=== PATIENT | female | born 1960 | race Caucasian/White ===

== ENCOUNTER 2017-04-21 07:45 | Emergency (ER) | payer OTHER ==
[2017-04-21] MEDS ORDERED: Ondansetron INJ* 2 MG/ML VIAL IV ONE (08:01)
--- NOTE | 2017-04-21 08:51 | RAD ---
INDICATION: Abdominal pain. COMPARISON: Comparison is made with a prior abdominal series from March 16, 2016. TECHNIQUE: Supine and upright views of the abdomen were obtained. FINDINGS: The small bowel and colon appear nondistended. No free intraperitoneal air is seen. There are multiple surgical clips in the right upper quadrant most consistent with a prior cholecystectomy. There are also surgical sutures and a surgical clip in the left upper quadrant. IMPRESSION: POSTSURGICAL CHANGES, NO EVIDENCE FOR OBSTRUCTION.
[2017-04-21] MEDS: NS 0.9% 1000 ML* 2,000 ML IV ONE ×2 (09:00→09:01)
[2017-04-21 09:12] LABS: Hematocrit 43 % (35-47); Hemoglobin 14.4 g/dl (12.0-16.0); Mean Corpuscular HGB Conc 33 g/dl (31-36); Mean Corpuscular Hemoglobin 31 pg (27-31); Mean Corpuscular Volume 92 fL (80-97); Mean Platelet Volume 8 um3 (7.4-10.4); Red Blood Count 4.69 10^6/ul (4.0-5.4); Red Cell Distribution Width 14 % (10.5-15)
[2017-04-21 09:28] LABS: Albumin 3.7 g/dL (3.2-5.2); BUN/Creatinine Ratio 15.9 (8-20); C Reactive Protein 41.33 mg/L (< 5.00); Calcium 9.1 mg/dL (8.6-10.3); EGFR African American 125.3 (>60); EGFR Non-African American 97.4 (>60); Globulin 2.9 g/dL (2-4); Total Bilirubin 0.5 mg/dL (0.2-1.0); Total Protein 6.6 g/dL (6.4-8.9)
[2017-04-21 09:34] LABS: Potassium 3.8 mmol/L (3.5-5.0)
[2017-04-21 09:45] LABS: Urine Bacteria Absent (Absent); Urine Bilirubin Negative (Negative); Urine Glucose Negative (Negative); Urine Nitrite Negative (Negative)
[2017-04-21 11:58] VITALS: BP 135/72
--- NOTE | 2017-04-21 20:05 | ED ---
Kristel Ruiz Edward, scribed for Richard Madrigal MD on 04/21/17 at 0752 . Complex/Multi-Sys Presentation - HPI Summary HPI Summary: 56 y/o female presents to ED c/o watery diarrhea every hour for the past 24 hours. Patient also c/o intermittent ABD pain characterized as a cramping and sharp pain located in the suprapubic region, rated 4/10 @ triage. ABD pain is not always alleviated with diarrhea. Associated sx: weakness, dizziness, dry mouth, mild fever (99.7), and nausea. Denies CP, SOB, and vomiting. Patient denies travel outside of the country, sick contact and unusual foods eaten recently. SHx gastric sleeve. PMHx diverticulitis. - History Of Current Complaint Chief Complaint: EDDizziness Hx Obtained From: Patient Onset/Duration: Sudden Onset, Lasting Hours - Past 24 hours Timing: Intermittent, Lasting: Severity Currently: Moderate Severity Initially: Moderate Location: Pain At: - Suprapubic region Character: Sharp - and cramping Alleviating Factor(s): Pain sometimes alleviated with diarrhea Associated Signs And Symptoms: Positive: Dizziness, Weakness, Nausea, Diarrhea, Abdominal Pain, Fever - Mild - 99.7, Other - Dry mouth. Negative: SOB, Chest Pain, Vomiting - Allergies/Home Medications Allergies/Adverse Reactions: Allergies Allergy/AdvReac Type Severity Reaction Status Date / Time Ibuprofen Allergy Severe TONGUE Verified 04/21/17 08:18 SWELLS, DIFFICULTY BREATHING, NUMBNES TINGLING, RASH Levofloxacin [From Levaquin] Allergy Severe Tongue Verified 04/21/17 08:18 swells, Difficulty breathing, Numbness,Tingling, rash Sulfamethoxazole Allergy Severe Tongue Verified 04/21/17 08:18 w/Trimethoprim swells,difficulty [From Bactrim] breatrhing, numbness, tingling,Rash Ketorolac Tromethamine Allergy NO ACTUAL Verified 04/21/17 08:18 [From Toradol] REACTION/RELATES TO IBUPROFEN ALLERGY PMH/Surg Hx/FS Hx/Imm Hx Previously Healthy: No Endocrine/Hematology History: Denies: Hx Diabetes, Hx Thyroid Disease Cardiovascular History: Denies: Hx Hypertension Respiratory History: Reports: Hx Asthma - PRN INHALER, Hx Sleep Apnea Denies: Hx Chronic Obstructive Pulmonary Disease (COPD) GI History: Denies: Hx Ulcer History: Reports: Other Problems/Disorders - HX OF UTI, Rt ureter "kinked " Musculoskeletal History: Reports: Hx Arthritis - BILATERAL KNEES Sensory History: Reports: Hx Contacts or Glasses - GLASSES Opthamlomology History: Reports: Hx Contacts or Glasses - GLASSES Neurological History: Reports: Hx Migraine - LESS SINCE MENOPAUSE - Cancer History Hx Chemotherapy: No Hx Radiation Therapy: No - Surgical History Surgery Procedure, Year, and Place: 2 c sections. 3 d&C's. choley. meniscus repair both knees Hx Anesthesia Reactions: No Infectious Disease History: Denies: Hx Clostridium Difficile, Hx Hepatitis, Hx Human Immunodeficiency Virus (HIV), Hx of Known/Suspected MRSA, Hx Shingles, Hx Tuberculosis, Hx Known/ Suspected VRE, Hx Known/Suspected VRSA, History Other Infectious Disease, Traveled Outside the [place] in Last 30 Days - Family History Known Family History: Positive: Other - cancer - mom [employer], dad blood - Social History Occupation: Employed Full-time Lives: With Family Alcohol Use: None Substance Use Type: Reports: None Smoking Status (MU): Never Smoked Tobacco Review of Systems Positive: Fever - Mild Eyes: Negative ENT: Other - Dry mouth Cardiovascular: Negative Negative: Chest Pain Respiratory: Negative Negative: Shortness Of Breath Positive: Abdominal Pain, Diarrhea, Nausea. Negative: Vomiting Genitourinary: Negative Musculoskeletal: Negative Skin: Negative Neurological: Other - Dizziness Positive: Weakness Psychological: Normal All Other Systems Reviewed And Are Negative: Yes Physical Exam - Summary Physical Exam Summary: VITAL SIGNS:~Reviewed. GENERAL:~ Patient is a well-developed and nourished female who is lying comfortable in the stretcher.~ Patient is not in any acute respiratory distress. HEAD AND FACE:~No signs of trauma.~ No ecchymosis, hematomas or skull depressions. No sinus tenderness. EYES:~PERRLA, EOMI x 2, No injected conjunctiva, no nystagmus. EARS:~Hearing grossly intact. Ear canals and tympanic membranes are within normal limits. MOUTH:~ Dry oral mucosa. NECK:~Supple, trachea is midline, no adenopathy, no JVD, no carotid bruit, no c- spine tenderness, neck with full ROM. CHEST:~Symmetric, no tenderness at palpation LUNGS:~Clear to auscultation bilaterally. No wheezing or crackles. CVS:~Regular rate and rhythm, S1 and S2 present, no murmurs or gallops appreciated. ABDOMEN:~Soft, non-tender. No signs of distention. No rebound no guarding, and no masses palpated. Bowel sounds are normal. EXTREMITIES:~FROM in all major joints, no edema, no cyanosis or clubbing. NEURO:~Alert and oriented x 3. No acute neurological deficits. Speech is normal and follows commands. SKIN:~Dry and warm Triage Information Reviewed: Yes Vital Signs On Initial Exam: Initial Vitals Temp Pulse Resp BP Pulse Ox 97.4 F 86 20 156/95 95 04/21/17 07:46 04/21/17 07:46 04/21/17 07:46 04/21/17 07:46 04/21/17 07:46 Vital Signs Reviewed: Yes Diagnostics - Vital Signs Vital Signs Temp Pulse Resp BP Pulse Ox 04/21/17 07:46 97.4 F 86 20 156/95 95 - Laboratory Lab Results: Lab Results 04/21/17 04/21/17 04/21/17 Range/Units 09:02 09:02 09:02 WBC 6.0 (3.5-10.8) 10^3/ul RBC 4.69 (4.0-5.4) 10^6/ul Hgb 14.4 (12.0-16.0) g/dl Hct 43 (35-47) % MCV 92 (80-97) fL MCH 31 (27-31) pg MCHC 33 (31-36) g/dl RDW 14 (10.5-15) % Plt Count 164 (150-450) 10^3/ul MPV 8 (7.4-10.4) um3 Neut % (Auto) 79.9 (38-83) % Lymph % (Auto) 13.7 L (25-47) % [place] % (Auto) 5.7 (1-9) % Eos % (Auto) 0.2 (0-6) % Baso % (Auto) 0.5 (0-2) % Absolute Neuts (auto) 4.8 (1.5-7.7) 10^3/ul Absolute Lymphs (auto) 0.8 L (1.0-4.8) 10^3/ul Absolute Monos (auto) 0.3 (0-0.8) 10^3/ul Absolute Eos (auto) 0 (0-0.6) 10^3/ul Absolute Basos (auto) 0 (0-0.2) 10^3/ul Absolute Nucleated RBC 0 10^3/ul Nucleated RBC % 0.1 Sodium 135 (133-145) mmol/L Potassium 3.8 (3.5-5.0) mmol/L Chloride 105 (101-111) mmol/L Carbon Dioxide 24 (22-32) mmol/L Anion Gap 6 (2-11) mmol/L BUN 10 (6-24) mg/dL Creatinine 0.63 (0.51-0.95) mg/dL Est GFR ( Amer) 125.3 (>60) Est GFR (Non-Af Amer) 97.4 (>60) BUN/Creatinine Ratio 15.9 (8-20) Glucose 94 (70-100) mg/dL Lactic Acid (0.5-2.0) mmol/L Calcium 9.1 (8.6-10.3) mg/dL Total Bilirubin 0.50 (0.2-1.0) mg/dL AST 18 (13-39) U/L ALT 10 (7-52) U/L Alkaline Phosphatase 63 (34-104) U/L Ammonia (16-53) mol/L C-Reactive Protein 41.33 H (< 5.00) mg/L Total Protein 6.6 (6.4-8.9) g/dL Albumin 3.7 (3.2-5.2) g/dL Globulin 2.9 (2-4) g/dL Albumin/Globulin Ratio 1.3 (1-3) Amylase 25 L (29-103) U/L Lipase 13 (11.0-82.0) U/L Urine Color Straw Urine Appearance Clear Urine pH 6.0 (5-9) Ur Specific [place] 1.005 L (1.010-1.030) Urine Protein Negative (Negative) Urine Ketones Negative (Negative) Urine Blood 1+ H (Negative) Urine Nitrate Negative (Negative) Urine Bilirubin Negative (Negative) Urine Urobilinogen Negative (Negative) Ur Leukocyte Esterase Negative (Negative) Urine WBC (Auto) Trace(0-5/hpf) (Absent) Urine RBC (Auto) Trace(0-2/hpf) (Absent) Ur Squamous Epith Cells Present H (Absent) Urine Bacteria Absent (Absent) Urine Glucose Negative (Negative) 04/21/17 04/21/17 Range/Units 09:02 09:02 WBC (3.5-10.8) 10^3/ul RBC (4.0-5.4) 10^6/ul Hgb (12.0-16.0) g/dl Hct (35-47) % MCV (80-97) fL MCH (27-31) pg MCHC (31-36) g/dl RDW (10.5-15) % Plt Count (150-450) 10^3/ul MPV (7.4-10.4) um3 Neut % (Auto) (38-83) % Lymph % (Auto) (25-47) % [place] % (Auto) (1-9) % Eos % (Auto) (0-6) % Baso % (Auto) (0-2) % Absolute Neuts (auto) (1.5-7.7) 10^3/ul Absolute Lymphs (auto) (1.0-4.8) 10^3/ul Absolute Monos (auto) (0-0.8) 10^3/ul Absolute Eos (auto) (0-0.6) 10^3/ul Absolute Basos (auto) (0-0.2) 10^3/ul Absolute Nucleated RBC 10^3/ul Nucleated RBC % Sodium (133-145) mmol/L Potassium (3.5-5.0) mmol/L Chloride (101-111) mmol/L Carbon Dioxide (22-32) mmol/L Anion Gap (2-11) mmol/L BUN (6-24) mg/dL Creatinine (0.51-0.95) mg/dL Est GFR ( Amer) (>60) Est GFR (Non-Af Amer) (>60) BUN/Creatinine Ratio (8-20) Glucose (70-100) mg/dL Lactic Acid 0.5 (0.5-2.0) mmol/L Calcium (8.6-10.3) mg/dL Total Bilirubin (0.2-1.0) mg/dL AST (13-39) U/L ALT (7-52) U/L Alkaline Phosphatase (34-104) U/L Ammonia 34 (16-53) mol/L C-Reactive Protein (< 5.00) mg/L Total Protein (6.4-8.9) g/dL Albumin (3.2-5.2) g/dL Globulin (2-4) g/dL Albumin/Globulin Ratio (1-3) Amylase (29-103) U/L Lipase (11.0-82.0) U/L Urine Color Urine Appearance Urine pH (5-9) Ur Specific [place] (1.010-1.030) Urine Protein (Negative) Urine Ketones (Negative) Urine Blood (Negative) Urine Nitrate (Negative) Urine Bilirubin (Negative) Urine Urobilinogen (Negative) Ur Leukocyte Esterase (Negative) Urine WBC (Auto) (Absent) Urine RBC (Auto) (Absent) Ur Squamous Epith Cells (Absent) Urine Bacteria (Absent) Urine Glucose (Negative) Result Diagrams: 04/21/17 09:02 04/21/17 09:02 Lab Statement: Any lab studies that have been ordered have been reviewed, and results considered in the medical decision making process. - Radiology ABD XRAY Xray Interpretation: No Acute Changes - POSTSURGICAL CHANGES. NO EVIDENCE FOR OBSTRUCTION Radiology Interpretation Completed By: Radiologist - EKG 1 EKG Interpretation: 08:37 - Sinus rhythm @ [address] elevations Re-Evaluation - Re-Evaluation 1 Re-Evaluation Time: 11:18 Change: Improved Comment: ABD exam - soft, nontender, non-distended. Positive bowel sounds. Complex Multi-Symp Course/Dx Assessment/Plan: 56 y/o female presents to ED c/o watery diarrhea every hour for the past 24 hours. Patient also c/o intermittent ABD pain characterized as a cramping and sharp pain located in the suprapubic region, rated 4/10 @ triage. ABD pain is not always alleviated with diarrhea. Associated sx: weakness , dizziness, dry mouth, mild fever (99.7), and nausea. Denies CP, SOB, and vomiting. Patient denies travel outside of the country, sick contact and unusual foods eaten recently. SHx gastric sleeve. PMHx diverticulitis. Test results show no significant abnormality except CRP 41.3. UA (-) UTI. C-diff (-) . Stool culture still pending. XR c/p. In ED course the pt was given Zofran for N/V and hydrated with 2 L fluids. After hydration the pt recalls she feels much better. The pt denies N/V or abd pain. I reexamined ABD before discharging the pt, which was soft and nontender with (+) bowel sounds. Therefore I did not see the need to perform a ABD CT. Pt has no abnormalities, is hemodynamically stable and A&Ox3 and pain free, so the patient will be d/c home with f/u with PCP. The patient was given Zofran for N/V and recommended to return if she develops any fevers, chills, N/V or ABD pain. I discussed all the findings and test results with the patient. Patient was instructed to return to the emergency room immediately if any of the symptoms return or worsens. They were explained the possibility of an early abdominal pathology which was not detected at this time despite the physical exam and testing. They understand and agree. Abdominal exam before discharge: Soft, NT. No signs of distention. BS present. No rebound no guarding, and no masses palpated. Patient is alert and oriented and hemodynamically stable. Patient is to follow up with primary care physician in the next 2 to 3 days. Patient agree and understands. - Diagnoses Provider Diagnoses: Nausea and vomiting, Diarrhea Discharge - Discharge Plan Condition: Stable Disposition: HOME Prescriptions: Ondansetron TAB* [Zofran 4 MG Tab*] 4 mg PO Q6H PRN #10 tab PRN Reason: Vomiting Patient Education Materials: Acute Nausea and Vomiting (ED), Acute Diarrhea (ED ) Referrals: Jamie Chappell [Primary Care Provider] - 3 Days (Please follow up in 2-3 days.) The documentation as recorded by the Kristel del angel Edward accurately reflects the service I personally performed and the decisions made by me, Richard Madrigal MD.
--- NOTE | 2017-04-22 09:13 | PN ---
Progress Note - Progress Note Date of Service: 04/21/17 Note: culture did not grow bacteria Nothing further at this time. Danielle Watkins PA-C
== END 2017-04-21 12:05 | disposition home or self-care (01) ==
LOC: ED 07:45
DX: R19.7 Diarrhea, unspecified (principal); R42 Dizziness and giddiness; R11.2 Nausea with vomiting, unspecified; R53.1 Weakness; R10.9 Unspecified abdominal pain; R06.02 Shortness of breath
CPT/HCPCS: 36415; 74020; 80053; 81003; 81015; 82140; 82150; 82272; 83605; 83630; 83690; 85025; 86140; 87045; 87046; 87077; 87493; 87899; 93005; 99283; J2405

== ENCOUNTER 2018-12-29 07:48 | Emergency (ER) | payer OTHER ==
[2018-12-29 08:01] VITALS: BP 144/87
--- NOTE | 2018-12-29 08:17 | UC ---
Eye Complaint HPI - HPI Summary HPI Summary: 58-year-old female complaining of a sore throat over the past 24 hours. She also complains of left eye redness with yellow crusty drainage. - History of Current Complaint Chief Complaint: UCEye Stated Complaint: eye issues Time Seen by Provider: 12/29/18 07:57 Hx Obtained From: Patient Hx Last Menstrual Period: Oct 2013 ?: No Onset/Duration: Gradual Onset Timing: Constant Severity Initially: Mild Severity Currently: Mild Pain Intensity: 2 Location of Injury: Other - Injury Aggravating Factor(s): Nothing Alleviating Factor(s): Nothing Associated Signs And Symptoms: Positive: Drainage (Purulent) - Purulent drainage and left eye crusty this morning. - Risk Factors Penetrating Injury Risk Factor: Negative - Allergies/Home Medications Allergies/Adverse Reactions: Allergies Allergy/AdvReac Type Severity Reaction Status Date / Time levofloxacin Allergy Difficulty Verified 12/29/18 08:01 Breathing NSAIDS (Non-Steroidal Allergy Anaphylatic Verified 12/29/18 08:01 Anti-Inflamma Shock sulfamethoxazole Allergy Swelling Verified 12/29/18 08:01 [From Bactrim] Of Face,Lips,& Throat trimethoprim [From Bactrim] Allergy Swelling Verified 12/29/18 08:01 Of Face,Lips,& Throat PMH/Surg Hx/FS Hx/Imm Hx Previously Healthy: Yes - Surgical History Surgical History: Yes Surgery Procedure, Year, and Place: 2 c sections. 4 d&C's. choley. meniscus repair both knees. GASTRIC SLEEVE 05/2016. TUBAL LIGATION. hysterectomy - Family History Known Family History: Positive: Other - cancer - mom [employer] SEW[employer], dad blood - Social History Alcohol Use: Rare Substance Use Type: None Smoking Status (MU): Never Smoked Tobacco - Immunization History Most Recent Influenza Vaccination: 2014 Most Recent Tetanus Shot: UNKNOWN Most Recent Pneumonia Vaccination: 2016 Review of Systems All Other Systems Reviewed And Are Negative: Yes Eyes: Positive: Drainage, Eye Redness ENT: Positive: Sore Throat Is Patient Immunocompromised?: No Physical Exam Triage Information Reviewed: Yes Appearance: Well-Appearing, No Pain Distress, Well-Nourished Vital Signs: Initial Vital Signs Temp 96.9 F 12/29/18 07:58 Pulse 70 12/29/18 07:58 Resp 16 12/29/18 07:58 BP 144/87 12/29/18 07:58 Pulse Ox 98 03/30/19 07:58 Vital Signs Reviewed: Yes Eyes: Positive: Conjunctiva Inflamed, Discharge - Mild yellow crusty drainage at the inner canthus. Patient also has what appears to be either a stye or ulceration of the left lower inner eyelid. ENT: Positive: Hearing grossly normal, Pharyngeal erythema - Minimal tonsillar erythema, no exudate, uvula is midline and no trismus., TMs normal Neck exam: Normal Respiratory Exam: Normal Cardiovascular Exam: Normal Musculoskeletal Exam: Normal Neurological Exam: Normal Psychological Exam: Normal Skin Exam: Normal Eye Complaint Course/Dx - Course Course Of Treatment: Patient has been comfortable here. Rapid strep test was negative. - Differential Dx/Diagnosis Provider Diagnosis: Left conjunctivitis, Stye Discharge - Sign-Out/Discharge Documenting (check all that apply): Patient Departure All imaging exams completed and their final reports reviewed: No Studies - Discharge Plan Condition: Good Disposition: HOME Prescriptions: Tobramycin 0.3% OPHTH.NICOLAS* 1 drop LEFT EYE Q4H #1 btl Patient Education Materials: Conjunctivitis (ED) Referrals: Jennifer QUAN,Jamie Barros [Primary Care Provider] - Additional Instructions: Good Handwashing. Follow up with the chief of service on Monday if no improvement. You may apply warm moist compresses to the left eye. Warm saltwater gargles or throat lozenges for your sore throat. Follow-up with your primary care provider in 3 or 4 days if no improvement. - Billing Disposition and Condition Condition: GOOD Disposition: Home - Attestation Statements Provider Attestation: I was available for consult. This patient was seen by the TONI. The patient was not presented to, seen by, or examined by me. -Gabrielle
== END 2018-12-29 08:50 | disposition home or self-care (01) ==
LOC: UCEAST 07:48
DX: H10.9 Unspecified conjunctivitis (principal); H00.015 Hordeolum externum left lower eyelid; Z88.3 Allergy status to other anti-infective agents; Z88.8 Allergy status to other drugs, medicaments and biological substances; Z88.2 Allergy status to sulfonamides
CPT/HCPCS: 87651; 99212; G0463

== ENCOUNTER 2019-01-10 19:28 | Emergency (ER) | payer OTHER ==
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
[2019-01-10 21:43] VITALS: BP 157/95
== END 2019-01-10 21:43 | disposition home or self-care (01) ==
LOC: UCEAST 19:28
DX: S92.101A Unspecified fracture of right talus, initial encounter for closed fracture (principal); X50.9XXA Other and unspecified overexertion or strenuous movements or postures, initial encounter; Y92.9 Unspecified place or not applicable; Y99.0 Civilian activity done for income or pay; Z88.6 Allergy status to analgesic agent; Z88.1 Allergy status to other antibiotic agents; Z88.2 Allergy status to sulfonamides
CPT/HCPCS: 99212; G0463

== ENCOUNTER 2020-05-23 22:21 | Observation (INO) ==
[2020-05-23] MEDS ORDERED: NS 0.9% 1000 ml BAG 1,000 ML IV ONE (23:07)
[2020-05-23] MEDS ORDERED: Morphine 4 MG/ML VIAL (1 ml) IV ONE (23:16)
[2020-05-23] MEDS ORDERED: Ondansetron 4 mg VIAL 2 MG/ML 2 ml VIAL IV ONE (23:16)
[2020-05-24 00:17] LABS: Urine Appearance Clear; Urine Bilirubin Negative (Negative); Urine Blood Negative (Negative); Urine Color Yellow; Urine Glucose Negative (Negative); Urine Ketones Negative (Negative); Urine Nitrite Negative (Negative); Urine Protein Negative (Negative); Urine Specific Gravity 1.012 (1.010-1.030); Urine Urobilinogen Negative (Negative)
[2020-05-24 00:32] LABS: ABS Eosinophils 0.1 10^3/ul (0-0.6); ABS Lymphocytes 0.8 10^3/ul (1.0-4.8); ABS Monocytes 0.6 10^3/ul (0-0.8); ABS Neutrophils 7.8 10^3/ul (1.5-7.7); Eosinophil % 1.6 %; Hematocrit 41 % (35-47); Hemoglobin 14.1 g/dL (12.0-16.0); Lymphocyte % 8.9 %; Mean Corpuscular HGB Conc 34 g/dL (31-36); Mean Corpuscular Hemoglobin 31 pg (27-31); Mean Corpuscular Volume 91 fL (80-97); Mean Platelet Volume 7.9 fL (7.4-10.4); Platelet Count 233 10^3/uL (150-450); Red Blood Count 4.54 10^6 /uL (3.70-4.87); Red Cell Distribution Width 14 % (10-15); White Blood Count 9.4 10^3/uL (3.5-10.8)
[2020-05-24 00:41] LABS: Albumin 4.1 g/dL (3.2-5.2); Calcium 9.8 mg/dL (8.6-10.3); Potassium 3.8 mmol/L (3.5-5.0); Total Bilirubin 0.5 mg/dL (0.2-1.0)
[2020-05-24 00:47] LABS: Albumin/Globulin Ratio 1.2 (1-3); BUN/Creatinine Ratio 14.1 (8-20); C Reactive Protein 68.31 mg/L (<8.01); EGFR African American 91.2 (>60); EGFR Non-African American 75.3 (>60); Globulin 3.4 g/dL (2-4); Total Protein 7.5 g/dL (6.4-8.9)
[2020-05-24] MEDS ORDERED: Iohexol 300 (CONTRAST) 10 ML SDV IV ONE (01:24)
[2020-05-24] MEDS ORDERED: metroNIDAZOLE IV 500 MG/100ML 500 MG/100 ML BAG IVPB ONE (02:28)
[2020-05-24] MEDS ORDERED: Morphine 2 MG/ML SYRINGE IV PRN (02:44)
[2020-05-24] MEDS ORDERED: Al Hydrox/Mg Hydrox/Simet LIQ 30 ML UDC PO PRN (02:44)
[2020-05-24] MEDS ORDERED: oxyCODONE/Acetamin 5/325 mg TAB PO PRN (02:44)
[2020-05-24] MEDS ORDERED: cefTRIAXone 2 GM ADDV.VIAL 2 GM in NS 0.9% 100 ml BAG 100 ML IVPB ONE (02:47)
[2020-05-24] MEDS: Morphine 4 MG/ML VIAL (1 ml) IV ONE ×2 (03:06→04:13)
[2020-05-24] MEDS: Ondansetron 4 mg VIAL 2 MG/ML 2 ml VIAL IV PRN ×2 (04:52→10:38)
[2020-05-24] MEDS: NS 0.9% 1000 ml BAG 1,000 ML IV SCH ×2 (05:25→13:32)
[2020-05-24] MEDS: Enoxaparin 40 MG/0.4 ML SYR SUBCUT SCH (05:58)
[2020-05-24 07:32] LABS: Albumin 3.6 g/dL (3.2-5.2); Albumin/Globulin Ratio 1.2 (1-3); BUN/Creatinine Ratio 11.1 (8-20); Calcium 8.7 mg/dL (8.6-10.3); EGFR Non-African American 82.6 (>60); Potassium 3.6 mmol/L (3.5-5.0); Total Bilirubin 0.6 mg/dL (0.2-1.0); Total Protein 6.6 g/dL (6.4-8.9)
[2020-05-24] MEDS: metroNIDAZOLE IV 500 MG/100ML 500 MG/100 ML BAG IVPB SCH ×2 (10:33→19:25)
[2020-05-24] MEDS ORDERED: NS 0.9% 1000 ml BAG 1,000 ML IV SCH (17:41)
[2020-05-25] MEDS: cefTRIAXone 2 GM ADDV.VIAL 2 GM in NS 0.9% 100 ml BAG 100 ML IV SCH (02:42)
[2020-05-25] MEDS: metroNIDAZOLE IV 500 MG/100ML 500 MG/100 ML BAG IVPB SCH ×3 (03:56→20:02)
[2020-05-25] MEDS: Enoxaparin 40 MG/0.4 ML SYR SUBCUT SCH (05:38)
[2020-05-25 07:10] LABS: Albumin 3.3 g/dL (3.2-5.2); Albumin/Globulin Ratio 1.2 (1-3); BUN/Creatinine Ratio 9.4 (8-20); Calcium 8.3 mg/dL (8.6-10.3); EGFR African American 114.5 (>60); EGFR Non-African American 94.7 (>60); Globulin 2.7 g/dL (2-4); Indirect Bilirubin 0.2 mg/dL (0.3-1.0); Potassium 3.3 mmol/L (3.5-5.0); Total Bilirubin 0.3 mg/dL (0.2-1.0)
[2020-05-25] MEDS: KCL 10 MEQ/50 ML IVPREMIX 10 MEQ/50 ML BAG IV SCH ×4 (08:13→16:34)
[2020-05-25 10:40] LABS: Magnesium 1.7 mg/dL (1.9-2.7)
[2020-05-25] MEDS: Ondansetron 4 mg VIAL 2 MG/ML 2 ml VIAL IV PRN (23:40)
[2020-05-26] MEDS: cefTRIAXone 2 GM ADDV.VIAL 2 GM in NS 0.9% 100 ml BAG 100 ML IV SCH (03:25)
[2020-05-26] MEDS: metroNIDAZOLE IV 500 MG/100ML 500 MG/100 ML BAG IVPB SCH ×2 (04:13→12:24)
[2020-05-26] MEDS: Enoxaparin 40 MG/0.4 ML SYR SUBCUT SCH (05:22)
[2020-05-26 05:32] LABS: Calcium 8.5 mg/dL (8.6-10.3); Magnesium 1.7 mg/dL (1.9-2.7); Potassium 3.5 mmol/L (3.5-5.0)
[2020-05-26 05:38] LABS: BUN/Creatinine Ratio 8.6 (8-20); EGFR African American 128.3 (>60)
[2020-05-26] MEDS ORDERED: Magnesium Sulfate 2 gm BAG 2 GM/50 ML BAG IVPB ONE (06:17)
[2020-05-26] MEDS: Ondansetron 4 mg VIAL 2 MG/ML 2 ml VIAL IV PRN (14:09)
[2020-05-26 15:58] VITALS: BP 141/81
== END 2020-05-26 17:10 | disposition home or self-care (01) ==
LOC: SSU 22:21 → ED 22:21 → SSU 05-24 04:55
PROVIDERS: ADMIT Pediatrics; ATTEND Internal Medicine

== ENCOUNTER 2020-11-23 05:41 | Inpatient (IN) ==
[~2020-11-23 05:41] MED LIST: Ertapenem 1 GM in NS 0.9% 50 ML BAG IVPB SCH
[2020-11-23] MEDS ORDERED: Lactated Ringers 1000 ml BAG 1,000 ML IV SCH (06:00)
[2020-11-23] MEDS ORDERED: Buffered Lidocaine 1% SYRIN 1 ml INTRADERM ONE ×2 (06:00→06:13)
[2020-11-23] MEDS ORDERED: Sodium Citrate/Citric Acid LIQ 15 ML UDC PO ONE (06:00)
[2020-11-23] MEDS ORDERED: Heparin 5000 UNITS/ML 1 mL VIAL ONE (06:12)
[2020-11-23] MEDS ORDERED: Sodium Citrate/Citric Acid LIQ 15 ML UDC ONE (06:13)
[2020-11-23] MEDS ORDERED: Midazolam 2 mg/2 ml VIAL 1 mg/ml 2 ml VIAL (2 mg) ONE (06:41)
[2020-11-23] MEDS ORDERED: Rocuronium 50 mg VIAL 10 mg/ml 5 ml VIAL (50 mg) ONE ×4 (06:41→11:38)
[2020-11-23] MEDS ORDERED: fentaNYL 250 mcg/5 ml 50 MCG/ML 5 ml VIAL (250 MCG) ONE ×2 (06:41→09:24)
[2020-11-23] MEDS ORDERED: Dexamethasone IV 4 MG/ML VIAL 1 ml VIAL ONE (06:45)
[2020-11-23] MEDS ORDERED: EPHEDrine (Pressors) 50 MG/ML VIAL ONE (06:45)
[2020-11-23] MEDS ORDERED: Propofol 10 MG/ML 20 ML BTL ONE ×2 (06:45→13:53)
[2020-11-23] MEDS ORDERED: Sterile Water for Inj 10 ML ONE (06:45)
[2020-11-23] MEDS ORDERED: Lidocaine 2% PF 5 ML VIAL ONE ×3 (06:45→10:04)
[2020-11-23] MEDS ORDERED: Phenylephrine 40 mcg/mL 10mL (400mcg) SYRINGE ONE ×2 (06:45→12:54)
[2020-11-23] MEDS ORDERED: Bupivacaine 0.25% EPI 200,000 30 ML SDV ONE (07:11)
[2020-11-23] MEDS ORDERED: DiMENhydriNATE IV 50 mg/ml 1 ml VIAL IV PUSH PRN (09:52)
[2020-11-23] MEDS ORDERED: Acetaminophen IV 1 GM/100ML 1,000 MG/100 ML VIAL IVPB PRN (09:52)
[2020-11-23] MEDS ORDERED: HYDROmorphone 1 MG/1 ML SYRINGE IV PRN (09:52)
[2020-11-23] MEDS ORDERED: diPHENhydraMINE IV 50 MG/ML 1 ml VIAL (BENADRYL) IV PRN (09:52)
[2020-11-23] MEDS ORDERED: fentaNYL 100 mcg/2 ml 50 MCG/ML VIAL IV PRN (09:52)
[2020-11-23] MEDS ORDERED: Naloxone 0.4 mg VIAL 0.4 mg/ml 1 ml VIAL IV PRN (09:52)
[2020-11-23] MEDS ORDERED: Ondansetron 4 mg VIAL 2 MG/ML 2 ml VIAL IV PRN ×2 (09:52→14:22)
[2020-11-23] MEDS ORDERED: Sugammadex 500 MG/5 ML 5 ml VIAL IV PUSH ONE (12:34)
[2020-11-23] MEDS ORDERED: Ondansetron 4 mg VIAL 2 MG/ML 2 ml VIAL ONE (12:34)
[2020-11-23] MEDS ORDERED: Albuterol/Ipratropium NEB.SOL (2.5/0.5 MG) 3 ML NEB.SOLN INH PRN (14:31)
[2020-11-23] MEDS ORDERED: Calcium Carb (TUMS) 500 mg CHEW TAB PO PRN (14:32)
[2020-11-23] MEDS: Lactated Ringers 1000 ml BAG 1,000 ML IV SCH (15:00)
[2020-11-23] MEDS ORDERED: HYDROmorphone 0.5 MG/0.5 ML SYRINGE IV SLOW PU PRN (15:35)
[2020-11-23] MEDS: Tobramycin 0.3% OPHTH.OINT 1 APPLIC TUBE RIGHT EYE SCH (19:03)
[2020-11-23] MEDS: Heparin 5000 UNITS/ML 1 mL VIAL SUBCUT SCH (20:44)
[2020-11-24] MEDS: Lactated Ringers 1000 ml BAG 1,000 ML IV SCH (00:15)
[2020-11-24] MEDS: Tobramycin 0.3% OPHTH.OINT 1 APPLIC TUBE RIGHT EYE SCH ×5 (04:49→22:00)
[2020-11-24] MEDS: Heparin 5000 UNITS/ML 1 mL VIAL SUBCUT SCH ×3 (05:34→21:56)
[2020-11-24 05:41] LABS: ABS Lymphocytes 1.1 10^3/ul (1.0-4.8); ABS Monocytes 0.7 10^3/ul (0-0.8); ABS Neutrophils 4.6 10^3/ul (1.5-7.7); Eosinophil % 0.2 %; Hematocrit 37 % (35-47); Hemoglobin 12.5 g/dL (12.0-16.0); Lymphocyte % 17.4 %; Mean Corpuscular HGB Conc 34 g/dL (31-36); Mean Corpuscular Hemoglobin 31 pg (27-31); Mean Corpuscular Volume 90 fL (80-97); Mean Platelet Volume 7.5 fL (7.4-10.4); Platelet Count 202 10^3/uL (150-450); Red Blood Count 4.07 10^6 /uL (3.70-4.87); Red Cell Distribution Width 14 % (10-15); White Blood Count 6.4 10^3/uL (3.5-10.8)
[2020-11-24 05:58] LABS: BUN/Creatinine Ratio 13.6 (8-20); Calcium 8.2 mg/dL (8.6-10.3); EGFR African American 110.5 (>60); EGFR Non-African American 91.4 (>60); Potassium 3.4 mmol/L (3.5-5.0)
[2020-11-24] MEDS ORDERED: Potassium Chlor 20 meq TAB.ER PO ONE (07:24)
[2020-11-24] MEDS ORDERED: HYDROmorphone 0.5 MG/0.5 ML SYRINGE IV SLOW PU PRN (12:29)
[2020-11-25] MEDS: Tobramycin 0.3% OPHTH.OINT 1 APPLIC TUBE RIGHT EYE SCH ×4 (00:36→18:30)
[2020-11-25] MEDS: Heparin 5000 UNITS/ML 1 mL VIAL SUBCUT SCH ×3 (05:54→22:46)
[2020-11-25 07:41] LABS: BUN/Creatinine Ratio 11.1 (8-20); Calcium 8.5 mg/dL (8.6-10.3); EGFR African American 116.6 (>60); EGFR Non-African American 96.4 (>60); Potassium 3.6 mmol/L (3.5-5.0)
[2020-11-26] MEDS: Tobramycin 0.3% OPHTH.OINT 1 APPLIC TUBE RIGHT EYE SCH ×3 (00:29→12:39)
[2020-11-26] MEDS: Heparin 5000 UNITS/ML 1 mL VIAL SUBCUT SCH (06:09)
[2020-11-26 11:46] VITALS: BP 156/81
== END 2020-11-26 12:45 | disposition home or self-care (01) | DRG 221 ==
LOC: AA 05:41 → SSU 15:30
PROVIDERS: ADMIT Surgery Surgical Critical Care; ATTEND Surgery Surgical Critical Care

== ENCOUNTER 2023-10-13 17:43 | Inpatient (IN) ==
[2023-10-13] MEDS: cefTRIAXone 1 gm/50 mL D5W 1 GM/50 ML BAG IV ONE (20:04)
[2023-10-13 20:10] LABS: ABS Eosinophils 0.1 10^3/uL (0.0-0.5); ABS Lymphocytes 0.8 10^3/uL (1.0-4.8); ABS Monocytes 0.6 10^3/uL (0.0-0.9); ABS Neutrophils 5.3 10^3/uL (1.5-7.6); Eosinophil % 1.3 %; Hematocrit 40.5 % (35-45); Hemoglobin 13.7 g/dL (11.5-14.3); Lymphocyte % 11.9 %; Mean Corpuscular Hemoglobin 30.9 pg (27-33); Mean Corpuscular Hgb Conc 33.7 g/dL (31-36); Mean Corpuscular Volume 91.5 fL (80-97); Mean Platelet Volume 7.4 fL (7.5-11.2); Platelet Count 247 10^3/uL (150-450); Red Blood Count 4.43 10^6/uL (3.63-4.92); Red Cell Distribution Width 13.8 % (12-17); White Blood Count 6.8 10^3/uL (3.8-11.8)
[2023-10-13 20:29] LABS: Albumin 3.9 g/dL (3.2-5.2); Albumin/Globulin Ratio 1.1 (1-3); C Reactive Protein 109.12 mg/L (<8.01); Calcium 9.2 mg/dL (8.6-10.3); Creatinine, Serum 0.87 mg/dL (0.51-0.95); Globulin 3.5 g/dL (2-4); Potassium 4.5 mmol/L (3.5-5.0); Total Bilirubin 0.4 mg/dL (0.2-1.0); Total Protein 7.4 g/dL (6.4-8.9); eGFR CKD-EPI 74.8 (>60)
[2023-10-13] MEDS: Azithromycin 500 mg/250 ml NS 500 MG/250 ML BAG IVPB ONE (20:59)
[2023-10-13] MEDS: Enoxaparin 40 MG/0.4 ML SYR SUBCUT SCH (22:16)
[2023-10-13] MEDS: Lactated Ringers 1000 ml BAG 1,000 ML IV SCH (22:18)
[2023-10-13] MEDS ORDERED: Albuterol/Ipratropium NEB.SOL (2.5/0.5 MG) 3 ML NEB.SOLN INH PRN (22:55)
[2023-10-14 06:35] LABS: Hematocrit 37.5 % (35-45); Hemoglobin 12.8 g/dL (11.5-14.3); Mean Corpuscular Hemoglobin 30.9 pg (27-33); Mean Corpuscular Hgb Conc 34.1 g/dL (31-36); Mean Corpuscular Volume 90.8 fL (80-97); Red Blood Count 4.13 10^6/uL (3.63-4.92); Red Cell Distribution Width 13.4 % (12-17); White Blood Count 7.1 10^3/uL (3.8-11.8)
[2023-10-14 06:51] LABS: Calcium 8.7 mg/dL (8.6-10.3); Creatinine, Serum 0.7 mg/dL (0.51-0.95); Magnesium 1.8 mg/dL (1.9-2.7); Potassium 4.3 mmol/L (3.5-5.0); eGFR CKD-EPI 97.1 (>60)
[2023-10-14 07:29] LABS: Mean Platelet Volume 7.6 fL (7.5-11.2); Platelet Count 254 10^3/uL (150-450)
[2023-10-14] MEDS: Magnesium Sulfate IV 1GM/100ML 1 GM/100 ML BAG IV ONE (09:04)
[2023-10-14] MEDS: Albuterol/Ipratropium NEB.SOL (2.5/0.5 MG) 3 ML NEB.SOLN INH SCH ×2 (10:51→20:58)
[2023-10-14 16:53] LABS: C Reactive Protein 111.92 mg/L (<8.01)
[2023-10-14 18:18] LABS: Erythrocyte Sed Rate 48 mm/Hr (0-29)
[2023-10-14] MEDS: Azithromycin 500 mg/250 ml NS 500 MG/250 ML BAG IVPB SCH (20:11)
[2023-10-14] MEDS: cefTRIAXone 1 gm/50 mL D5W 1 GM/50 ML BAG IV SCH (21:33)
[2023-10-15 06:11] LABS: Calcium 8.9 mg/dL (8.6-10.3); Creatinine, Serum 0.73 mg/dL (0.51-0.95); Potassium 4.3 mmol/L (3.5-5.0); eGFR CKD-EPI 92.3 (>60)
[2023-10-15 08:45] LABS: C Reactive Protein 107.86 mg/L (<8.01)
[2023-10-15 09:22] VITALS: BP 105/70
== END 2023-10-15 14:00 | disposition home or self-care (01) | DRG 139 ==
LOC: EDHOLD 17:43 → ED 17:43 → SUATTDRO 21:44 → SSU 23:42
PROVIDERS: ADMIT Student in an Organized Health Care Education/Training Program; ATTEND Hospitalist

== ENCOUNTER 2023-11-23 11:39 | Observation (INO) ==
[2023-11-23] MEDS ORDERED: ceFAZolin 2 GM PREMIX 2 GM/50 ML BAG ONE (11:52)
[2023-11-23] MEDS ORDERED: Tranexamic Acid 1 GM/100ML BAG 2,000 MG/200 ML BAG IV ONE (11:52)
[2023-11-23 12:24] LABS: Rapid COVID-19 Molecular Undetected (Undetected)
[2023-11-23] MEDS ORDERED: Midazolam 2 mg/2 ml VIAL 1 mg/ml 2 ml VIAL (2 mg) ONE ×2 (13:33→15:02)
[2023-11-23] MEDS ORDERED: HYDROmorphone 1 MG/1 ML SYRINGE IV PRN (13:47)
[2023-11-23] MEDS ORDERED: Naloxone 0.4 mg VIAL 0.4 mg/ml 1 ml VIAL IV PRN (13:47)
[2023-11-23] MEDS ORDERED: Acetaminophen IV 1 GM/100ML 1,000 MG/100 ML BAG IV PRN (13:47)
[2023-11-23] MEDS ORDERED: fentaNYL 100 mcg/2 ml 50 MCG/ML VIAL IV PRN (13:47)
[2023-11-23] MEDS ORDERED: ROPIVACAINE 5 MG/ML 30 ML BTL (0.5%) ONE ×2 (14:00→14:55)
[2023-11-23] MEDS ORDERED: Bupivacaine-MPF SPINAL 7.5 MG/ML - 2ML AMP ONE (15:07)
[2023-11-23] MEDS ORDERED: Phenylephrine 40 mcg/mL 10mL (400mcg) SYRINGE ONE (15:21)
[2023-11-23] MEDS ORDERED: Ondansetron ODT 4 mg TAB 4 MG TAB PO PRN (16:31)
[2023-11-23] MEDS ORDERED: Ondansetron 4 mg VIAL 2 MG/ML 2 ml VIAL IV PRN (16:31)
[2023-11-23] MEDS ORDERED: Lactulose 30 ml UDC PO PRN (16:31)
[2023-11-23] MEDS ORDERED: Magnesium Hydroxide LIQ 30 ML UDC PO PRN (16:31)
[2023-11-23] MEDS ORDERED: Morphine 2 MG/ML SYRINGE IV PRN (16:31)
[2023-11-23] MEDS ORDERED: Propofol 10 MG/ML 20 ML BTL ONE ×2 (16:45→17:23)
[2023-11-23] MEDS ORDERED: fentaNYL 100 mcg/2 ml 50 MCG/ML VIAL ONE (16:57)
[2023-11-23] MEDS: Buffered Lidocaine 1% SYRIN 1 ml INTRADERM ONE (18:13)
[2023-11-23] MEDS: Lactated Ringers 1000 ml BAG 1,000 ML IV SCH ×2 (18:14→20:10)
[2023-11-23] MEDS ORDERED: Ondansetron 4 mg VIAL 2 MG/ML 2 ml VIAL ONE (18:14)
[2023-11-23] MEDS: Ondansetron 4 mg VIAL 2 MG/ML 2 ml VIAL IV PRN (18:17)
[2023-11-23] MEDS ORDERED: Albuterol HFA INHALER 8 gm MDI INH PRN (18:38)
[2023-11-23] MEDS: Magnesium Hydroxide LIQ 30 ML UDC PO SCH (22:16)
[2023-11-23] MEDS: ceFAZolin 1 GM ADVAN 1 GM in NS 0.9% 50 ML 50 ML IVPB SCH (23:34)
[2023-11-24 06:48] LABS: Hemoglobin 11.8 g/dL (11.5-14.3); Mean Platelet Volume 7.3 fL (7.5-11.2); Platelet Count 191 10^3/uL (150-450)
[2023-11-24 07:06] LABS: Calcium 8.5 mg/dL (8.6-10.3); Creatinine, Serum 0.68 mg/dL (0.51-0.95); Potassium 4.5 mmol/L (3.5-5.0); eGFR CKD-EPI 97.8 (>60)
[2023-11-24] MEDS: Vitamin THERAPEUTIC TAB PO SCH (07:57)
[2023-11-24 09:27] VITALS: BP 128/77
== END 2023-11-24 15:30 | disposition home or self-care (01) ==
LOC: OR 11:39 → SSU 11:39 → EDSTATUS 14:30
PROVIDERS: ADMIT Orthopaedic Surgery Adult Reconstructive Orthopaedic Surgery; ATTEND Orthopaedic Surgery Adult Reconstructive Orthopaedic Surgery

== ENCOUNTER 2024-09-03 06:16 | Observation (INO) ==
[~2024-09-03 06:16] MED LIST changes: -Ertapenem 1 GM in NS 0.9% 50 ML BAG IVPB SCH; +Metoclopramide 5 MG/ML VIAL (10 mg) IV PRN; +NS 0.45% 1000 ml BAG 1,000 ML IV SCH; +Naloxone 0.4 mg VIAL 0.4 mg/ml 1 ml VIAL IV PRN; +Ondansetron 4 mg VIAL 2 MG/ML 2 ml VIAL IV PRN; +ROPIVACAINE 5 MG/ML 30 ML BTL (0.5%) ONE; +fentaNYL 100 mcg/2 ml 50 MCG/ML VIAL IV PRN
[2024-09-03] MEDS ORDERED: fentaNYL 100 mcg/2 ml 50 MCG/ML VIAL ONE ×2 (06:20→07:06)
[2024-09-03] MEDS ORDERED: Ondansetron 4 mg VIAL 2 MG/ML 2 ml VIAL ONE (06:20)
[2024-09-03] MEDS ORDERED: Midazolam 2 mg/2 ml VIAL 1 mg/ml 2 ml VIAL (2 mg) ONE ×3 (06:20→07:53)
[2024-09-03] MEDS ORDERED: Dexamethasone IV 4 MG/ML VIAL 1 ml VIAL ONE (06:20)
[2024-09-03] MEDS ORDERED: Lidocaine 2% PF 5 ML VIAL ONE (06:20)
[2024-09-03 06:52] LABS: Rapid COVID-19 Molecular Undetected (Undetected)
[2024-09-03] MEDS ORDERED: Tranexamic Acid 1 GM/100ML BAG 2,000 MG/200 ML BAG IV ONE (06:52)
[2024-09-03] MEDS ORDERED: ceFAZolin 2 GM PREMIX 2 GM/50 ML BAG ONE (06:53)
[2024-09-03] MEDS ORDERED: ROPIVACAINE 5 MG/ML 30 ML BTL (0.5%) ONE ×2 (06:54→07:53)
[2024-09-03] MEDS ORDERED: Propofol 10 MG/ML 20 ML BTL ONE ×2 (10:40→11:23)
[2024-09-03] MEDS ORDERED: Lactulose 30 ml UDC PO PRN (11:47)
[2024-09-03] MEDS ORDERED: Ondansetron 4 mg VIAL 2 MG/ML 2 ml VIAL IV PRN (11:47)
[2024-09-03] MEDS ORDERED: Calcium Carb (TUMS) 500 mg CHEW TAB PO PRN (11:47)
[2024-09-03] MEDS ORDERED: Magnesium Hydroxide LIQ 30 ML UDC PO PRN (11:47)
[2024-09-03] MEDS ORDERED: Morphine 2 MG/ML SYRINGE IV PRN (11:47)
[2024-09-03] MEDS ORDERED: Ondansetron ODT 4 mg TAB 4 MG TAB PO PRN (11:47)
[2024-09-03] MEDS: Lactated Ringers 1000 ml BAG 1,000 ML IV SCH ×2 (14:03→14:41)
[2024-09-03] MEDS: Scopolamine 1 mg/72hr PATCH TRANSDERM ONE (14:40)
[2024-09-03] MEDS: Buffered Lidocaine 1% SYRIN 1 ml INTRADERM ONE (14:40)
[2024-09-03] MEDS: Acetaminophen IV 1 GM/100ML 1,000 MG/100 ML BAG IV ONE (14:40)
[2024-09-03] MEDS ORDERED: Albuterol HFA INHALER 8 gm MDI INH PRN (15:39)
[2024-09-03] MEDS: ceFAZolin 2 GM PREMIX 2 GM/50 ML BAG IV SCH (17:21)
[2024-09-03] MEDS: Magnesium Hydroxide LIQ 30 ML UDC PO SCH (20:56)
[2024-09-04 07:02] LABS: Hematocrit 36.3 % (35-45); Hemoglobin 12.6 g/dL (11.5-14.3); Mean Platelet Volume 7.5 fL (7.5-11.2); Platelet Count 157 10^3/uL (150-450)
[2024-09-04 07:10] LABS: Calcium 8.5 mg/dL (8.6-10.3); Creatinine, Serum 0.72 mg/dL (0.51-0.95); Potassium 4.2 mmol/L (3.5-5.0); eGFR CKD-EPI 93.3 (>60)
[2024-09-04] MEDS: Vitamin THERAPEUTIC TAB PO SCH (09:06)
[2024-09-04 10:15] VITALS: BP 140/81
== END 2024-09-04 13:30 | disposition home or self-care (01) ==
LOC: OR 06:16 → SSU 06:16 → EDSTATUS 09:15
PROVIDERS: ADMIT Orthopaedic Surgery Adult Reconstructive Orthopaedic Surgery; ATTEND Orthopaedic Surgery Adult Reconstructive Orthopaedic Surgery